=== PATIENT | female | born 2005 | race Caucasian/White ===

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

== ENCOUNTER 2023-01-27 19:15 | Emergency (ER) | payer BC, MEDICAID, SELFPAY ==
--- NOTE | ~2023-01-27 | XR_ITS ---
EXAMINATION: XR chest 2V 01/27/2023 20:24 INDICATION: Dyspnea. Chest pain. PROCEDURE: 2 view chest COMPARISON: No prior studies for comparison. FINDINGS: The lungs are clear. The cardiomediastinal silhouette is within normal limits. There are no pleural effusions. There is no pneumothorax suspected. IMPRESSION: 1: NO ACUTE CARDIOPULMONARY DISEASE. Reviewed, dictated and finalized at location A.
[2023-01-27 19:57] VITALS: BP 118/64; PULSE 94; RESP 20; TEMP 36.8; O2SAT 100
--- NOTE | 2023-01-27 20:40 | ECG_ITS ---
Measurements Intervals [place] Rate: 78 P: 56 CA: 158 QRS: 64 QRSD: 84 T: 54 QT: 347 QTc: 397 Interpretive Statements SINUS RHYTHM RSR' IN V1 OR V2, PROBABLY NORMAL VARIANT BORDERLINE ECG NO PREVIOUS ECG AVAILABLE FOR COMPARISON Electronically Signed On 01-27-2023 21:27:51 CDT by Romie Granados D.O.
--- NOTE | 2023-01-27 20:42 | ED.SOB ---
HPI - SOB/Dyspnea General Chief Complaint: Shortness of Breath/Dyspnea <Kathy Mina PA-C - Last Filed: 01/27/23 23:30> Stated Complaint: shortness of breath <SCOT Moreira Last Filed: 01/27/23 23:30> Time Seen by Provider: 01/27/23 20:21 <Kathy Mina PA-C - Last Filed: 01/27/23 23:30> Source: patient <SCOT Moreira Last Filed: 01/27/23 23:30> Mode of arrival: ambulatory <SCOT Moreira Last Filed: 01/27/23 23:30> Limitations: no limitations <SCOT Moreira Last Filed: 01/27/23 23:30> History of Present Illness HPI Narrative: Patient is a 17-year-old female who presents to the ED with report of chest pain and difficulty breathing. Patient reports having mild shortness of breath for the last 1 week. She states it improved spontaneously a couple of days ago. She denies any aggravating or alleviating factors to this. Denies history of lung issues, asthma, smoking, recent cough or cold symptoms, fevers. Patient also reports having pain along her midsternal chest wall, worse with palpation, twisting, movement. She has not tried anything for this pain. Denies aggravation with exertion. Denies injury or recent strenuous activity. Patient denies any lower extremity pain or swelling, abdominal pain, nausea, vomiting, history of blood clots or DVT. No hormonal control use. No pleuritic pain. <Kathy Mina PA-C - Last Filed: 01/27/23 23:30> Related Data Allergies/Adverse Reactions: Allergies Allergy/AdvReac Type Severity Reaction Status Date / Time No Known Allergies Allergy Mild Verified 01/27/23 20:09 <SCOT Moreira Last Filed: 01/27/23 23:30> Review of Systems Review of Systems: CONSTITUTIONAL: Denies fever, chills, or sweats. ENT: Denies rhinorrhea, congestion, sore throat. CARDIOVASCULAR: See HPI. RESPIRATORY: See HPI. GASTROINTESTINAL: Denies abdominal pain, nausea, vomiting. GENITOURINARY: Denies dysuria or hematuria. SKIN: Denies rash or itching. MUSCULOSKELETAL: Denies back pain, joint pain, or myalgia. NEUROLOGIC: Denies headache, numbness, or weakness. <Kathy Mina PA-C - Last Filed: 01/27/23 23:30> All systems reviewed & are unremarkable except as noted in HPI and below <Kathy Mina PA-C - Last Filed: 01/27/23 23:30> PMFSH Past Medical History Medical History: Medical History (Updated 01/28/23 @ 00:00 by Marybeth Spencer) No pertinent past medical history <Kathy Mina PA-C - Last Filed: 01/27/23 23:30> Surgical History Surgical History: Surgical History (Updated 01/27/23 @ 23:24 by Kathy Mina PA-C) No pertinent past surgical history <Kathy Mina PA-C - Last Filed: 01/27/23 23:30> Social History Social History: Social History (Updated 01/27/23 @ 23:24 by Kathy iMna PA-C) Smoking status: Never smoker Substance use type: marijuana <Kathy Mina PA-C - Last Filed: 01/27/23 23:30> Exam Narrative: GENERAL: Well appearing, well-nourished, non-toxic, in no acute distress. HEAD: Normocephalic, atraumatic. NECK: Supple. No adenopathy, no masses. RESPIRATORY: Airway patent, respirations nonlabored. Clear to auscultation bilaterally, no rales, rhonchi, wheezing. CARDIOVASCULAR: Regular rate and rhythm without murmurs, rubs, or gallops. Radial pulses 2+ and equal bilaterally. ABDOMINAL: Soft, nontender, nondistended, no hepatosplenomegaly. Normoactive BS. MUSCULOSKELETAL: Moves all extremities. Strength/ROM intact without gross deformities. Chest wall tenderness along anterior midsternal chest, reproducing pain. SKIN: Warm, dry, normal color. No rashes. NEURO: A&O X3. Speech clear. Cranial nerves II-XII grossly intact. Steady gait. No ataxic movements. PSYCHIATRIC: Appropriate mood and affect. Normal interaction. <Kathy Mina PA-C - Last Filed: 01/27/23
[2023-01-27] MEDS: IBUPROFEN 600 MG TABLET PO (21:35)
[2023-01-27 22:35] VITALS: BP 112/79; PULSE 65; RESP 17; O2SAT 99
== END 2023-01-27 22:36 | disposition home or self-care (01) ==
PROVIDERS: Emergency Provider Physician Assistant
DX: R07.89 Other chest pain (principal); R06.81 Apnea, not elsewhere classified; R94.31 Abnormal electrocardiogram [ECG] [EKG]
CPT/HCPCS: 71046; 93005; 96372; 99283; A9270

== ENCOUNTER 2023-11-29 20:17 | Emergency (ER) | payer BC, MEDICAID, SELFPAY ==
--- NOTE | ~2023-11-29 | XR_ITS ---
EXAMINATION: [id number] DATE: 11/29/2023 20:24 INDICATION: Left patella dislocation status post reduction. TECHNIQUE: 2 views of left knee were obtained. COMPARISON: None. FINDINGS: Bone alignment is normal. No fracture. Joint spaces are normal. No knee joint effusion. IMPRESSION: 1. Normal left knee. Reviewed, dictated and finalized at location E. TAINABILITY ENGINEER IMPRESSION: 1. Normal left knee.
[2023-11-29 20:00] VITALS: PULSE 100; RESP 18; TEMP 36.4; O2SAT 98
[2023-11-29 20:14] VITALS: BP 99/75; PULSE 87; RESP 18; O2SAT 98
--- NOTE | 2023-11-29 20:14 | ED.GENADULT ---
HPI - General Adult General Chief complaint: Extremity Injury, Lower Stated complaint: knee deformity History of Present Illness HPI narrative: 18-year-old female presents emergency department for evaluation of a dislocated left patella. patient reports she was wrestling with her boyfriend when she injured the left knee. Patient does have prior history of a right-sided patellar dislocation but patient was wrestling tonight. Related Data Allergies Allergy/AdvReac Type Severity Reaction Status Date / Time No Known Allergies Allergy Unverified 11/29/23 20:14 Review of Systems Review of Systems: All systems reviewed & are unremarkable except as noted in HPI and below PMFSH Past Medical History Medical History (Updated 11/29/23 @ 20:19 by Oswald Ch MD) No pertinent past medical history Surgical History Surgical History (Updated 01/27/23 @ 23:24 by Kathy Mina PA-C) No pertinent past surgical history Social History Social History (Updated 01/27/23 @ 23:24 by Kathy Mina PA-C) Smoking status: Never smoker Substance use type: marijuana Exam Narrative: APPEARANCE: Well appearing, no pain, no distress, well-nourished. HEAD: normocephalic, atraumatic. EYES: PERRLA/EOMI, conjunctivae clear. NOSE: Normal no drainage NECK: Supple. No adenopathy, no masses. RESPIRATORY: Airway patent, respirations nonlabored. Clear to auscultation bilaterally, no rales, rhonchi, wheezing. CARDIOVASCULAR: Regular rate and rhythm without murmurs rubs or gallops. ABDOMINAL: Soft, nontender, nondistended, normal bowel sounds MUSCULOSKELETAL: left-sided patellar dislocation laterally. Neurovascular intact NEURO: Alert. Cranial nerves II through XII intact. Grossly intact SKIN: Warm, dry. Normal Color Course Course Emergency Course: 18-year-old female presents to theemergency department for evaluation of her left-sided in lateral dislocation of the patella. This was reduced without complication x-ray confirmed reduction. Patient was placed in knee immobilizer provided crutches for limited weight-bearing. Patient was encouraged close follow-up with her primary care physician and Orthopedics. All questions and concerns were addressed. Vital Signs Vital signs: Vital Signs Temperature 97.6 F 11/29/23 20:00 Pulse Rate 100 11/29/23 20:00 Respiratory Rate 18 11/29/23 20:00 Pulse Oximetry 98 11/29/23 20:00 Temperature 97.6 F 11/29/23 20:00 Pulse Rate 91 11/29/23 21:09 Respiratory Rate 18 11/29/23 21:09 Blood Pressure 107/89 11/29/23 21:09 Pulse Oximetry 100 11/29/23 21:09 Procedures Orthopedic Joint Reduction Joint #1: Time Out Performed: Yes Side: left Joint Reduction Location: other (left patella) Analgesia: none Pre-Procedure Neuro Vascular Exam: normal Shoulder Technique Used (if applicable): traction/counter-traction Post-reduction neuro exam: intact Post-reduction vascular: intact Post Reduction X-Ray Obtained: Yes Post Reduction X-Ray Results: reduced Splint Applied: Yes Patient Tolerated Procedure: well and no complications Medical Decision Making Vital Signs Vital Signs: Vital Signs Temperature 97.6 F 11/29/23 20:00 Pulse Rate 100 11/29/23 20:00 Respiratory Rate 18 11/29/23 20:00 Pulse Oximetry 98 11/29/23 20:00 Temperature 97.6 F 11/29/23 20:00 Pulse Rate 91 11/29/23 21:09 Respiratory Rate 18 11/29/23 21:09 Blood Pressure 107/89 11/29/23 21:09 Pulse Oximetry 100 11/29/23 21:09 Discharge Plan Discharge Clinical Impression: Closed dislocation of left patella Patient Disposition: Home, Self-Care Condition: Stable Instructions: Antibiotic Form Additional Instructions: Knee immobilizer as directed. Crutches for limited weight-bearing on the affected leg. Have close follow-up with your primary care physici
[2023-11-29 21:09] VITALS: BP 107/89; PULSE 91; RESP 18; O2SAT 100
== END 2023-11-29 21:12 | disposition home or self-care (01) ==
LOC: ANHED 20:49
PROVIDERS: Emergency Provider Emergency Medicine
DX: S83.005A Unspecified dislocation of left patella, initial encounter (principal); X58.XXXA Exposure to other specified factors, initial encounter; Y93.72 Activity, wrestling
CPT/HCPCS: 27560; 73560; 99285